=== PATIENT | female | born 1960 | race African-American/Black ===

== ENCOUNTER 2021-12-10 13:18 | Inpatient (IN) | payer OTHER ==
[2021-12-10 15:32] VITALS: BMI 24.3
[2021-12-10] MEDS ORDERED: MAGNESIUM CITRATE 300 ML BOTTLE PO PRN (17:18)
[2021-12-10] MEDS ORDERED: hydrOXYzine PAMOATE 25 MG CAPSULE (FP) PO PRN (17:18)
[2021-12-10] MEDS ORDERED: MAGNESIUM HYDROX 2400MG/30ML ORAL SUSPENSION 30 ML CUP PO PRN (17:18)
[2021-12-10] MEDS ORDERED: LOPERAMIDE HCL 2 MG CAPSULE PO PRN (17:18)
[2021-12-10] MEDS ORDERED: MAG HYDROX/AL HYDROX/SIMETH 30 ML UNIT-DOSE CUP PO PRN (17:18)
[2021-12-10] MEDS: THIAMINE HCL 100 MG TABLET (FP) PO SCH (21:50)
[2021-12-10] MEDS: INSULIN (LEVEMIR) 100 UNITS/ML UNITS SQ SCH (21:50)
[2021-12-10] MEDS: ATORVASTATIN CA 40 MG TABLET (FP) PO SCH (21:50)
[2021-12-10] MEDS: MELATONIN 5 MG TABLETS PO SCH (21:51)
[2021-12-10] MEDS: PREGABALIN 75 MG CAPSULE PO SCH (22:30)
[2021-12-11] MEDS: metFORMIN HCL 500 MG TABLET (FP) PO SCH ×2 (06:48→17:22)
[2021-12-11] MEDS ORDERED: INSULIN SLIDING SCALE (NOVOLOG) 1 VIAL SQ SCH ×2 (07:00→12:38)
[2021-12-11] MEDS: PREGABALIN 75 MG CAPSULE PO SCH ×4 (07:57→22:07)
[2021-12-11] MEDS ORDERED: PATIENT'S OWN MEDICATION (NON-FORMULARY) (Insulin Degludec [Tresiba Flextouch U-100] 100 U SQ SCH (10:00)
[2021-12-11] MEDS: NICOTINE 7 MG/24 HOURS TOPICAL PATCH TD SCH (10:29)
[2021-12-11] MEDS: PRENATAL VITAMINS W/ FOLIC ACID TABLET (FP) PO SCH (10:29)
[2021-12-11] MEDS: LOSARTAN POTASSIUM 25 MG TABLET PO SCH (10:30)
[2021-12-11] MEDS: ASPIRIN 81 MG CHEWABLE TABLETS PO SCH (10:30)
[2021-12-11] MEDS: NIFEdipine E.R 60 MG TABLET PO SCH (10:30)
[2021-12-11] MEDS: PANTOPRAZOLE 40 MG TABLET PO SCH (10:30)
[2021-12-11 11:13] LABS: HEMATOCRIT 35.9 % (32.4-45.2); HEMOGLOBIN 11.6 GM/dL (10.7-15.3); MCH 26.9 pg (25.7-33.7); MCHC 32.2 g/dl (32.0-36.0); MEAN CELL VOLUME 83.3 fl (80-96); MEAN PLT VOLUME 8.6 fl (7.5-11.1); PLATELET COUNT 301 10^3/uL (134-434); RBC 4.31 M/mm3 (3.60-5.2); RDW 15.5 % (11.6-15.6)
[2021-12-11 11:15] LABS: ALBUMIN 3.8 g/dl (3.4-5.0); BLOOD UREA NITROGEN 18.6 mg/dL (7-18); CALCIUM 10.2 mg/dL (8.5-10.1)
[2021-12-11 11:18] LABS: CREATININE 1.1 mg/dL (0.55-1.3)
[2021-12-11 11:20] LABS: BILIRUBIN,TOTAL 0.4 mg/dL (0.2-1); TOT PROT 6.6 g/dl (6.4-8.2)
[2021-12-11 11:48] LABS: SYPHILIS W/ RPR CONF NON-REACTIVE (NONREACTIVE)
[2021-12-11] MEDS ORDERED: INSULIN (NOVOLOG) ASPART 100 UNITS/ML 10ML VIAL ONE ×2 (12:44→17:21)
[2021-12-11] MEDS: INSULIN SLIDING SCALE (NOVOLOG) 1 VIAL SQ SCH ×2 (12:47→17:22)
[2021-12-11] MEDS: MELATONIN 5 MG TABLETS PO SCH (22:07)
[2021-12-11] MEDS: INSULIN (LEVEMIR) 100 UNITS/ML UNITS SQ SCH (22:07)
[2021-12-11] MEDS: ATORVASTATIN CA 40 MG TABLET (FP) PO SCH (22:07)
[2021-12-11] MEDS: THIAMINE HCL 100 MG TABLET (FP) PO SCH (22:07)
[2021-12-12] MEDS: PREGABALIN 75 MG CAPSULE PO SCH ×3 (06:28→22:13)
[2021-12-12] MEDS: INSULIN SLIDING SCALE (NOVOLOG) 1 VIAL SQ SCH ×3 (06:42→16:53)
[2021-12-12] MEDS: metFORMIN HCL 500 MG TABLET (FP) PO SCH ×2 (06:42→16:53)
[2021-12-12] MEDS: LOSARTAN POTASSIUM 25 MG TABLET PO SCH (10:27)
[2021-12-12] MEDS: PANTOPRAZOLE 40 MG TABLET PO SCH (10:27)
[2021-12-12] MEDS: NIFEdipine E.R 60 MG TABLET PO SCH (10:27)
[2021-12-12] MEDS: ASPIRIN 81 MG CHEWABLE TABLETS PO SCH (10:27)
[2021-12-12] MEDS: NICOTINE 7 MG/24 HOURS TOPICAL PATCH TD SCH (10:28)
[2021-12-12] MEDS: PRENATAL VITAMINS W/ FOLIC ACID TABLET (FP) PO SCH (10:28)
[2021-12-12] MEDS ORDERED: INSULIN (NOVOLOG) ASPART 100 UNITS/ML 10ML VIAL ONE (11:12)
[2021-12-12] MEDS: THIAMINE HCL 100 MG TABLET (FP) PO SCH (22:12)
[2021-12-12] MEDS: MELATONIN 5 MG TABLETS PO SCH (22:13)
[2021-12-12] MEDS: ATORVASTATIN CA 40 MG TABLET (FP) PO SCH (22:13)
[2021-12-12] MEDS: INSULIN (LEVEMIR) 100 UNITS/ML UNITS SQ SCH (22:54)
[2021-12-13] MEDS: PREGABALIN 75 MG CAPSULE PO SCH ×3 (06:29→21:33)
[2021-12-13] MEDS: metFORMIN HCL 500 MG TABLET (FP) PO SCH ×2 (06:29→17:10)
[2021-12-13] MEDS: INSULIN SLIDING SCALE (NOVOLOG) 1 VIAL SQ SCH ×3 (07:05→17:10)
[2021-12-13] MEDS: PRENATAL VITAMINS W/ FOLIC ACID TABLET (FP) PO SCH (10:30)
[2021-12-13] MEDS: LOSARTAN POTASSIUM 25 MG TABLET PO SCH (10:34)
[2021-12-13] MEDS: PANTOPRAZOLE 40 MG TABLET PO SCH (10:34)
[2021-12-13] MEDS: NICOTINE 7 MG/24 HOURS TOPICAL PATCH TD SCH (10:34)
[2021-12-13] MEDS: NIFEdipine E.R 60 MG TABLET PO SCH (10:34)
[2021-12-13] MEDS: ASPIRIN 81 MG CHEWABLE TABLETS PO SCH (10:34)
[2021-12-13] MEDS: NICOTINE 10 MG CARTRIDGE (INHALER) IH PRN ×3 (10:35→22:05)
[2021-12-13] MEDS ORDERED: INSULIN (NOVOLOG) ASPART 100 UNITS/ML 10ML VIAL ONE (12:24)
[2021-12-13 15:47] LABS: EPI CELLS 11 /uL (0-25.1); HYALINE CASTS 0 /uL (0-3.1); PH,URINE 6.5 (5.0-8.0); URINE APPEARANCE CLEAR; URINE BACTERIA 469 /uL (0-1359); URINE BILIRUBIN NEGATIVE (NEGATIVE); URINE COLOR YELLOW; URINE GLUCOSE (UA) 1+ (NEGATIVE); URINE KETONE NEGATIVE (NEGATIVE); URINE LEUK ESTERASE TRACE (NEGATIVE); URINE NITRITE NEGATIVE (NEGATIVE); URINE PROTEIN NEGATIVE (NEGATIVE); URINE RBC 1 /uL (0-23.9); URINE UROBILINOGEN 0.2 mg/dL (0.2-1.0); URINE WBC 15 /uL (0-25.8)
[2021-12-13] MEDS: THIAMINE HCL 100 MG TABLET (FP) PO SCH (21:33)
[2021-12-13] MEDS: MELATONIN 5 MG TABLETS PO SCH (21:33)
[2021-12-13] MEDS: ATORVASTATIN CA 40 MG TABLET (FP) PO SCH (21:33)
[2021-12-13] MEDS: INSULIN (LEVEMIR) 100 UNITS/ML UNITS SQ SCH (21:34)
[2021-12-14] MEDS: PREGABALIN 75 MG CAPSULE PO SCH ×3 (06:25→21:26)
[2021-12-14] MEDS: metFORMIN HCL 500 MG TABLET (FP) PO SCH ×2 (06:25→16:45)
[2021-12-14] MEDS: INSULIN SLIDING SCALE (NOVOLOG) 1 VIAL SQ SCH ×3 (07:03→16:45)
[2021-12-14] MEDS: ASPIRIN 81 MG CHEWABLE TABLETS PO SCH (10:39)
[2021-12-14] MEDS: PRENATAL VITAMINS W/ FOLIC ACID TABLET (FP) PO SCH (10:39)
[2021-12-14] MEDS: LOSARTAN POTASSIUM 25 MG TABLET PO SCH (10:40)
[2021-12-14] MEDS: PANTOPRAZOLE 40 MG TABLET PO SCH (10:40)
[2021-12-14] MEDS: NIFEdipine E.R 60 MG TABLET PO SCH (10:41)
[2021-12-14] MEDS: NICOTINE 7 MG/24 HOURS TOPICAL PATCH TD SCH (10:42)
[2021-12-14] MEDS: NICOTINE 10 MG CARTRIDGE (INHALER) IH PRN ×2 (10:45→21:29)
[2021-12-14] MEDS ORDERED: INSULIN (NOVOLOG) ASPART 100 UNITS/ML 10ML VIAL ONE (11:56)
[2021-12-14] MEDS: MELATONIN 5 MG TABLETS PO SCH (21:26)
[2021-12-14] MEDS: ATORVASTATIN CA 40 MG TABLET (FP) PO SCH (21:26)
[2021-12-14] MEDS: THIAMINE HCL 100 MG TABLET (FP) PO SCH (21:26)
[2021-12-14] MEDS: INSULIN (LEVEMIR) 100 UNITS/ML UNITS SQ SCH (21:28)
[2021-12-15] MEDS: PREGABALIN 75 MG CAPSULE PO SCH ×3 (06:40→21:14)
[2021-12-15] MEDS: metFORMIN HCL 500 MG TABLET (FP) PO SCH ×2 (06:40→16:38)
[2021-12-15] MEDS: INSULIN SLIDING SCALE (NOVOLOG) 1 VIAL SQ SCH ×3 (06:41→16:28)
[2021-12-15] MEDS: NIFEdipine E.R 60 MG TABLET PO SCH (09:52)
[2021-12-15] MEDS: PANTOPRAZOLE 40 MG TABLET PO SCH (09:52)
[2021-12-15] MEDS: PRENATAL VITAMINS W/ FOLIC ACID TABLET (FP) PO SCH (09:52)
[2021-12-15] MEDS: NICOTINE 7 MG/24 HOURS TOPICAL PATCH TD SCH (09:53)
[2021-12-15] MEDS: ASPIRIN 81 MG CHEWABLE TABLETS PO SCH (09:53)
[2021-12-15] MEDS: LOSARTAN POTASSIUM 25 MG TABLET PO SCH (09:53)
[2021-12-15] MEDS ORDERED: INSULIN (NOVOLOG) ASPART 100 UNITS/ML 10ML VIAL ONE (12:07)
[2021-12-15] MEDS: NICOTINE 10 MG CARTRIDGE (INHALER) IH PRN (13:47)
[2021-12-15] MEDS: metoPROLOL SUCCINATE 25 MG TAB.SR.24H (FP) PO SCH (16:22)
[2021-12-15] MEDS: ATORVASTATIN CA 40 MG TABLET (FP) PO SCH (21:14)
[2021-12-15] MEDS: THIAMINE HCL 100 MG TABLET (FP) PO SCH (21:14)
[2021-12-15] MEDS: MELATONIN 5 MG TABLETS PO SCH (21:14)
[2021-12-15] MEDS: INSULIN (LEVEMIR) 100 UNITS/ML UNITS SQ SCH (21:16)
[2021-12-16] MEDS: metFORMIN HCL 500 MG TABLET (FP) PO SCH ×2 (07:00→16:39)
[2021-12-16] MEDS: PREGABALIN 75 MG CAPSULE PO SCH ×3 (07:02→21:18)
[2021-12-16] MEDS: INSULIN SLIDING SCALE (NOVOLOG) 1 VIAL SQ SCH ×3 (07:02→16:38)
[2021-12-16] MEDS: PRENATAL VITAMINS W/ FOLIC ACID TABLET (FP) PO SCH (09:57)
[2021-12-16] MEDS: ASPIRIN 81 MG CHEWABLE TABLETS PO SCH (09:58)
[2021-12-16] MEDS: PANTOPRAZOLE 40 MG TABLET PO SCH (09:58)
[2021-12-16] MEDS: metoPROLOL SUCCINATE 25 MG TAB.SR.24H (FP) PO SCH (09:58)
[2021-12-16] MEDS: NIFEdipine E.R 60 MG TABLET PO SCH (09:58)
[2021-12-16] MEDS: NICOTINE 7 MG/24 HOURS TOPICAL PATCH TD SCH (09:59)
[2021-12-16] MEDS: LOSARTAN POTASSIUM 25 MG TABLET PO SCH (12:10)
[2021-12-16] MEDS ORDERED: INSULIN (NOVOLOG) ASPART 100 UNITS/ML 10ML VIAL ONE ×2 (12:11→16:33)
[2021-12-16] MEDS: NICOTINE 10 MG CARTRIDGE (INHALER) IH PRN (12:49)
[2021-12-16] MEDS: THIAMINE HCL 100 MG TABLET (FP) PO SCH (21:18)
[2021-12-16] MEDS: ATORVASTATIN CA 40 MG TABLET (FP) PO SCH (21:18)
[2021-12-16] MEDS: INSULIN (LEVEMIR) 100 UNITS/ML UNITS SQ SCH (21:18)
[2021-12-16] MEDS: MELATONIN 5 MG TABLETS PO SCH (21:18)
[2021-12-17] MEDS: INSULIN SLIDING SCALE (NOVOLOG) 1 VIAL SQ SCH ×3 (06:23→16:54)
[2021-12-17] MEDS: PREGABALIN 75 MG CAPSULE PO SCH (06:23)
[2021-12-17] MEDS: metFORMIN HCL 500 MG TABLET (FP) PO SCH ×2 (06:23→16:54)
[2021-12-17] MEDS: NICOTINE 10 MG CARTRIDGE (INHALER) IH PRN (09:02)
[2021-12-17] MEDS: metoPROLOL SUCCINATE 25 MG TAB.SR.24H (FP) PO SCH (10:41)
[2021-12-17] MEDS: PANTOPRAZOLE 40 MG TABLET PO SCH (10:41)
[2021-12-17] MEDS: PRENATAL VITAMINS W/ FOLIC ACID TABLET (FP) PO SCH (10:41)
[2021-12-17] MEDS: NICOTINE 7 MG/24 HOURS TOPICAL PATCH TD SCH (10:41)
[2021-12-17] MEDS: LOSARTAN POTASSIUM 25 MG TABLET PO SCH (10:41)
[2021-12-17] MEDS: NIFEdipine E.R 60 MG TABLET PO SCH (10:41)
[2021-12-17] MEDS: ASPIRIN 81 MG CHEWABLE TABLETS PO SCH (10:41)
[2021-12-17] MEDS: ATORVASTATIN CA 40 MG TABLET (FP) PO SCH (21:17)
[2021-12-17] MEDS: MELATONIN 5 MG TABLETS PO SCH (21:17)
[2021-12-17] MEDS: THIAMINE HCL 100 MG TABLET (FP) PO SCH (21:17)
[2021-12-17] MEDS: INSULIN (LEVEMIR) 100 UNITS/ML UNITS SQ SCH (21:17)
[2021-12-18] MEDS: metFORMIN HCL 500 MG TABLET (FP) PO SCH ×2 (06:46→17:02)
[2021-12-18] MEDS: INSULIN SLIDING SCALE (NOVOLOG) 1 VIAL SQ SCH ×3 (07:40→17:02)
[2021-12-18] MEDS: PRENATAL VITAMINS W/ FOLIC ACID TABLET (FP) PO SCH (10:38)
[2021-12-18] MEDS: LOSARTAN POTASSIUM 25 MG TABLET PO SCH (10:39)
[2021-12-18] MEDS: NIFEdipine E.R 60 MG TABLET PO SCH (10:39)
[2021-12-18] MEDS: metoPROLOL SUCCINATE 25 MG TAB.SR.24H (FP) PO SCH (10:39)
[2021-12-18] MEDS: ASPIRIN 81 MG CHEWABLE TABLETS PO SCH (10:39)
[2021-12-18] MEDS: PANTOPRAZOLE 40 MG TABLET PO SCH (10:39)
[2021-12-18] MEDS: NICOTINE 7 MG/24 HOURS TOPICAL PATCH TD SCH (10:42)
[2021-12-18] MEDS ORDERED: metoPROLOL SUCCINATE 25 MG TAB.SR.24H (FP) PO SCH ×2 (11:29→11:30)
[2021-12-18] MEDS ORDERED: INSULIN (NOVOLOG) ASPART 100 UNITS/ML 10ML VIAL ONE (12:05)
[2021-12-18] MEDS: ACETAMINOPHEN 325 MG TABLET (FP) PO PRN (19:59)
[2021-12-18] MEDS: MELATONIN 5 MG TABLETS PO SCH (22:12)
[2021-12-18] MEDS: ATORVASTATIN CA 40 MG TABLET (FP) PO SCH (22:12)
[2021-12-18] MEDS: INSULIN (LEVEMIR) 100 UNITS/ML UNITS SQ SCH (22:13)
[2021-12-18] MEDS: THIAMINE HCL 100 MG TABLET (FP) PO SCH (22:13)
[2021-12-19] MEDS: metoPROLOL SUCCINATE 25 MG TAB.SR.24H (FP) PO SCH ×2 (07:00→10:45)
[2021-12-19] MEDS: metFORMIN HCL 500 MG TABLET (FP) PO SCH ×2 (07:01→16:48)
[2021-12-19] MEDS ORDERED: INSULIN (NOVOLOG) ASPART 100 UNITS/ML 10ML VIAL ONE ×2 (07:02→12:02)
[2021-12-19] MEDS: INSULIN SLIDING SCALE (NOVOLOG) 1 VIAL SQ SCH ×3 (07:02→16:48)
[2021-12-19] MEDS: NICOTINE 10 MG CARTRIDGE (INHALER) IH PRN ×2 (08:43→22:06)
[2021-12-19] MEDS: PRENATAL VITAMINS W/ FOLIC ACID TABLET (FP) PO SCH (10:44)
[2021-12-19] MEDS: NIFEdipine E.R 60 MG TABLET PO SCH (10:45)
[2021-12-19] MEDS: LOSARTAN POTASSIUM 25 MG TABLET PO SCH (10:45)
[2021-12-19] MEDS: NICOTINE 7 MG/24 HOURS TOPICAL PATCH TD SCH (10:45)
[2021-12-19] MEDS: PANTOPRAZOLE 40 MG TABLET PO SCH (10:45)
[2021-12-19] MEDS: ASPIRIN 81 MG CHEWABLE TABLETS PO SCH (10:45)
[2021-12-19] MEDS: PREGABALIN 75 MG CAPSULE PO SCH ×2 (14:36→22:06)
[2021-12-19] MEDS: MELATONIN 5 MG TABLETS PO SCH (22:05)
[2021-12-19] MEDS: INSULIN (LEVEMIR) 100 UNITS/ML UNITS SQ SCH (22:06)
[2021-12-19] MEDS: ATORVASTATIN CA 40 MG TABLET (FP) PO SCH (22:06)
[2021-12-19] MEDS: THIAMINE HCL 100 MG TABLET (FP) PO SCH (22:06)
[2021-12-20] MEDS: INSULIN SLIDING SCALE (NOVOLOG) 1 VIAL SQ SCH ×3 (07:04→17:00)
[2021-12-20] MEDS: metFORMIN HCL 500 MG TABLET (FP) PO SCH ×2 (07:06→16:59)
[2021-12-20] MEDS: PREGABALIN 75 MG CAPSULE PO SCH ×3 (07:07→21:16)
[2021-12-20] MEDS: NIFEdipine E.R 60 MG TABLET PO SCH (10:43)
[2021-12-20] MEDS: NICOTINE 7 MG/24 HOURS TOPICAL PATCH TD SCH (10:43)
[2021-12-20] MEDS: ASPIRIN 81 MG CHEWABLE TABLETS PO SCH (10:43)
[2021-12-20] MEDS: PRENATAL VITAMINS W/ FOLIC ACID TABLET (FP) PO SCH (10:43)
[2021-12-20] MEDS: PANTOPRAZOLE 40 MG TABLET PO SCH (10:43)
[2021-12-20] MEDS: metoPROLOL SUCCINATE 25 MG TAB.SR.24H (FP) PO SCH (10:45)
[2021-12-20] MEDS ORDERED: INSULIN (NOVOLOG) ASPART 100 UNITS/ML 10ML VIAL ONE (11:22)
[2021-12-20] MEDS: LOSARTAN POTASSIUM 25 MG TABLET PO SCH (12:02)
[2021-12-20] MEDS: INSULIN (LEVEMIR) 100 UNITS/ML UNITS SQ SCH (21:14)
[2021-12-20] MEDS: MELATONIN 5 MG TABLETS PO SCH (21:15)
[2021-12-20] MEDS: THIAMINE HCL 100 MG TABLET (FP) PO SCH (21:16)
[2021-12-20] MEDS: ATORVASTATIN CA 40 MG TABLET (FP) PO SCH (21:16)
[2021-12-20] MEDS: NICOTINE 10 MG CARTRIDGE (INHALER) IH PRN (22:08)
[2021-12-21] MEDS: PREGABALIN 75 MG CAPSULE PO SCH ×3 (06:46→21:20)
[2021-12-21] MEDS: metFORMIN HCL 500 MG TABLET (FP) PO SCH ×2 (06:46→16:46)
[2021-12-21] MEDS ORDERED: INSULIN (NOVOLOG) ASPART 100 UNITS/ML 10ML VIAL ONE ×2 (06:48→10:59)
[2021-12-21] MEDS: INSULIN SLIDING SCALE (NOVOLOG) 1 VIAL SQ SCH ×3 (06:49→16:46)
[2021-12-21] MEDS: LOSARTAN POTASSIUM 25 MG TABLET PO SCH (10:50)
[2021-12-21] MEDS: metoPROLOL SUCCINATE 25 MG TAB.SR.24H (FP) PO SCH (10:50)
[2021-12-21] MEDS: NIFEdipine E.R 60 MG TABLET PO SCH (10:50)
[2021-12-21] MEDS: PRENATAL VITAMINS W/ FOLIC ACID TABLET (FP) PO SCH (10:50)
[2021-12-21] MEDS: PANTOPRAZOLE 40 MG TABLET PO SCH (10:50)
[2021-12-21] MEDS: ASPIRIN 81 MG CHEWABLE TABLETS PO SCH (10:51)
[2021-12-21] MEDS: NICOTINE 7 MG/24 HOURS TOPICAL PATCH TD SCH (10:51)
[2021-12-21] MEDS: NICOTINE 10 MG CARTRIDGE (INHALER) IH PRN (10:52)
[2021-12-21] MEDS: MELATONIN 5 MG TABLETS PO SCH (21:20)
[2021-12-21] MEDS: ATORVASTATIN CA 40 MG TABLET (FP) PO SCH (21:20)
[2021-12-21] MEDS: THIAMINE HCL 100 MG TABLET (FP) PO SCH (21:20)
[2021-12-21] MEDS: INSULIN (LEVEMIR) 100 UNITS/ML UNITS SQ SCH (21:21)
[2021-12-22] MEDS: metFORMIN HCL 500 MG TABLET (FP) PO SCH ×2 (06:27→16:48)
[2021-12-22] MEDS: PREGABALIN 75 MG CAPSULE PO SCH ×3 (06:27→21:24)
[2021-12-22] MEDS: INSULIN SLIDING SCALE (NOVOLOG) 1 VIAL SQ SCH ×3 (07:15→16:48)
[2021-12-22] MEDS: PRENATAL VITAMINS W/ FOLIC ACID TABLET (FP) PO SCH (10:40)
[2021-12-22] MEDS: PANTOPRAZOLE 40 MG TABLET PO SCH (10:41)
[2021-12-22] MEDS: LOSARTAN POTASSIUM 25 MG TABLET PO SCH (10:41)
[2021-12-22] MEDS: metoPROLOL SUCCINATE 25 MG TAB.SR.24H (FP) PO SCH (10:41)
[2021-12-22] MEDS: NIFEdipine E.R 60 MG TABLET PO SCH (10:41)
[2021-12-22] MEDS: NICOTINE 7 MG/24 HOURS TOPICAL PATCH TD SCH (10:41)
[2021-12-22] MEDS: ASPIRIN 81 MG CHEWABLE TABLETS PO SCH (10:41)
[2021-12-22] MEDS ORDERED: FLUCONAZOLE 50 MG TABLET PO ONE (11:30)
[2021-12-22] MEDS ORDERED: INSULIN (NOVOLOG) ASPART 100 UNITS/ML 10ML VIAL ONE ×2 (11:52→16:28)
[2021-12-22] MEDS: NICOTINE 10 MG CARTRIDGE (INHALER) IH PRN (12:48)
[2021-12-22] MEDS: MELATONIN 5 MG TABLETS PO SCH (21:24)
[2021-12-22] MEDS: INSULIN (LEVEMIR) 100 UNITS/ML UNITS SQ SCH (21:24)
[2021-12-22] MEDS: ATORVASTATIN CA 40 MG TABLET (FP) PO SCH (21:24)
[2021-12-22] MEDS: THIAMINE HCL 100 MG TABLET (FP) PO SCH (21:24)
[2021-12-23] MEDS: metoPROLOL SUCCINATE 25 MG TAB.SR.24H (FP) PO SCH (06:04)
[2021-12-23] MEDS: metFORMIN HCL 500 MG TABLET (FP) PO SCH ×2 (06:04→16:46)
[2021-12-23] MEDS: PREGABALIN 75 MG CAPSULE PO SCH ×3 (06:04→21:44)
[2021-12-23] MEDS: INSULIN SLIDING SCALE (NOVOLOG) 1 VIAL SQ SCH ×3 (07:42→16:47)
[2021-12-23] MEDS: PANTOPRAZOLE 40 MG TABLET PO SCH (09:58)
[2021-12-23] MEDS: NIFEdipine E.R 60 MG TABLET PO SCH (09:58)
[2021-12-23] MEDS: ASPIRIN 81 MG CHEWABLE TABLETS PO SCH (09:58)
[2021-12-23] MEDS: LOSARTAN POTASSIUM 25 MG TABLET PO SCH (09:58)
[2021-12-23] MEDS: PRENATAL VITAMINS W/ FOLIC ACID TABLET (FP) PO SCH (09:58)
[2021-12-23] MEDS: NICOTINE 7 MG/24 HOURS TOPICAL PATCH TD SCH (09:59)
[2021-12-23] MEDS ORDERED: INSULIN (NOVOLOG) ASPART 100 UNITS/ML 10ML VIAL ONE (11:57)
[2021-12-23] MEDS: NICOTINE 10 MG CARTRIDGE (INHALER) IH PRN (13:44)
[2021-12-23] MEDS: MELATONIN 5 MG TABLETS PO SCH (21:43)
[2021-12-23] MEDS: THIAMINE HCL 100 MG TABLET (FP) PO SCH (21:44)
[2021-12-23] MEDS: ATORVASTATIN CA 40 MG TABLET (FP) PO SCH (21:44)
[2021-12-23] MEDS: INSULIN (LEVEMIR) 100 UNITS/ML UNITS SQ SCH (21:45)
[2021-12-24] MEDS: PREGABALIN 75 MG CAPSULE PO SCH ×3 (05:57→21:29)
[2021-12-24] MEDS: metoPROLOL SUCCINATE 25 MG TAB.SR.24H (FP) PO SCH (05:57)
[2021-12-24] MEDS: INSULIN SLIDING SCALE (NOVOLOG) 1 VIAL SQ SCH ×3 (07:25→16:30)
[2021-12-24] MEDS: metFORMIN HCL 500 MG TABLET (FP) PO SCH ×2 (07:25→16:29)
[2021-12-24] MEDS: PANTOPRAZOLE 40 MG TABLET PO SCH (10:33)
[2021-12-24] MEDS: LOSARTAN POTASSIUM 25 MG TABLET PO SCH (10:33)
[2021-12-24] MEDS: ASPIRIN 81 MG CHEWABLE TABLETS PO SCH (10:33)
[2021-12-24] MEDS: NIFEdipine E.R 60 MG TABLET PO SCH (10:33)
[2021-12-24] MEDS: PRENATAL VITAMINS W/ FOLIC ACID TABLET (FP) PO SCH (10:33)
[2021-12-24] MEDS: NICOTINE 7 MG/24 HOURS TOPICAL PATCH TD SCH (10:34)
[2021-12-24] MEDS ORDERED: INSULIN (NOVOLOG) ASPART 100 UNITS/ML 10ML VIAL ONE ×2 (11:58→12:09)
[2021-12-24] MEDS: NICOTINE 10 MG CARTRIDGE (INHALER) IH PRN (21:28)
[2021-12-24] MEDS: INSULIN (LEVEMIR) 100 UNITS/ML UNITS SQ SCH (21:29)
[2021-12-24] MEDS: MELATONIN 5 MG TABLETS PO SCH (21:29)
[2021-12-24] MEDS: ATORVASTATIN CA 40 MG TABLET (FP) PO SCH (21:29)
[2021-12-24] MEDS: THIAMINE HCL 100 MG TABLET (FP) PO SCH (21:29)
[2021-12-25] MEDS: PREGABALIN 75 MG CAPSULE PO SCH ×3 (05:58→21:09)
[2021-12-25] MEDS: metoPROLOL SUCCINATE 25 MG TAB.SR.24H (FP) PO SCH (05:58)
[2021-12-25] MEDS: metFORMIN HCL 500 MG TABLET (FP) PO SCH ×2 (06:31→16:34)
[2021-12-25] MEDS: INSULIN SLIDING SCALE (NOVOLOG) 1 VIAL SQ SCH ×4 (07:15→16:36)
[2021-12-25] MEDS ORDERED: INSULIN (NOVOLOG) ASPART 100 UNITS/ML 10ML VIAL ONE ×5 (07:18→16:33)
[2021-12-25] MEDS: LOSARTAN POTASSIUM 25 MG TABLET PO SCH (10:09)
[2021-12-25] MEDS: PANTOPRAZOLE 40 MG TABLET PO SCH (10:09)
[2021-12-25] MEDS: PRENATAL VITAMINS W/ FOLIC ACID TABLET (FP) PO SCH (10:09)
[2021-12-25] MEDS: NIFEdipine E.R 60 MG TABLET PO SCH (10:09)
[2021-12-25] MEDS: ASPIRIN 81 MG CHEWABLE TABLETS PO SCH (10:09)
[2021-12-25] MEDS: NICOTINE 7 MG/24 HOURS TOPICAL PATCH TD SCH (10:10)
[2021-12-25] MEDS: ATORVASTATIN CA 40 MG TABLET (FP) PO SCH (21:09)
[2021-12-25] MEDS: MELATONIN 5 MG TABLETS PO SCH (21:09)
[2021-12-25] MEDS: THIAMINE HCL 100 MG TABLET (FP) PO SCH (21:09)
[2021-12-25] MEDS: NICOTINE 10 MG CARTRIDGE (INHALER) IH PRN (21:09)
[2021-12-25] MEDS: INSULIN (LEVEMIR) 100 UNITS/ML UNITS SQ SCH (21:52)
[2021-12-26] MEDS: metoPROLOL SUCCINATE 25 MG TAB.SR.24H (FP) PO SCH (05:56)
[2021-12-26] MEDS: PREGABALIN 75 MG CAPSULE PO SCH ×3 (05:56→21:23)
[2021-12-26] MEDS: metFORMIN HCL 500 MG TABLET (FP) PO SCH ×2 (06:19→16:35)
[2021-12-26 07:15] VITALS: RESP 18
[2021-12-26] MEDS: INSULIN SLIDING SCALE (NOVOLOG) 1 VIAL SQ SCH ×3 (07:26→16:35)
[2021-12-26] MEDS: NIFEdipine E.R 60 MG TABLET PO SCH (09:44)
[2021-12-26] MEDS: PRENATAL VITAMINS W/ FOLIC ACID TABLET (FP) PO SCH (09:44)
[2021-12-26] MEDS: LOSARTAN POTASSIUM 25 MG TABLET PO SCH (09:44)
[2021-12-26] MEDS: ASPIRIN 81 MG CHEWABLE TABLETS PO SCH (09:44)
[2021-12-26] MEDS: PANTOPRAZOLE 40 MG TABLET PO SCH (09:44)
[2021-12-26] MEDS: NICOTINE 7 MG/24 HOURS TOPICAL PATCH TD SCH (09:45)
[2021-12-26] MEDS: NICOTINE 10 MG CARTRIDGE (INHALER) IH PRN ×2 (09:45→21:23)
[2021-12-26] MEDS ORDERED: INSULIN (NOVOLOG) ASPART 100 UNITS/ML 10ML VIAL ONE ×2 (11:04→16:29)
[2021-12-26] MEDS: MELATONIN 5 MG TABLETS PO SCH (21:23)
[2021-12-26] MEDS: THIAMINE HCL 100 MG TABLET (FP) PO SCH (21:23)
[2021-12-26] MEDS: ATORVASTATIN CA 40 MG TABLET (FP) PO SCH (21:23)
[2021-12-26] MEDS: INSULIN (LEVEMIR) 100 UNITS/ML UNITS SQ SCH (21:23)
[2021-12-27] MEDS ORDERED: INSULIN (NOVOLOG) ASPART 100 UNITS/ML 10ML VIAL ONE ×2 (04:27→12:03)
[2021-12-27] MEDS: INSULIN SLIDING SCALE (NOVOLOG) 1 VIAL SQ SCH ×3 (06:26→16:37)
[2021-12-27] MEDS: PREGABALIN 75 MG CAPSULE PO SCH ×3 (06:29→21:29)
[2021-12-27] MEDS: metoPROLOL SUCCINATE 25 MG TAB.SR.24H (FP) PO SCH (06:29)
[2021-12-27] MEDS: metFORMIN HCL 500 MG TABLET (FP) PO SCH ×2 (06:29→16:36)
[2021-12-27] MEDS: PRENATAL VITAMINS W/ FOLIC ACID TABLET (FP) PO SCH (10:05)
[2021-12-27] MEDS: ASPIRIN 81 MG CHEWABLE TABLETS PO SCH (10:05)
[2021-12-27] MEDS: PANTOPRAZOLE 40 MG TABLET PO SCH (10:05)
[2021-12-27] MEDS: NIFEdipine E.R 60 MG TABLET PO SCH (10:06)
[2021-12-27] MEDS: LOSARTAN POTASSIUM 25 MG TABLET PO SCH (10:06)
[2021-12-27] MEDS: NICOTINE 7 MG/24 HOURS TOPICAL PATCH TD SCH (10:06)
[2021-12-27] MEDS: IBUPROFEN 400 MG TABLET (FP) PO PRN (19:21)
[2021-12-27] MEDS: THIAMINE HCL 100 MG TABLET (FP) PO SCH (21:29)
[2021-12-27] MEDS: INSULIN (LEVEMIR) 100 UNITS/ML UNITS SQ SCH (21:29)
[2021-12-27] MEDS: ATORVASTATIN CA 40 MG TABLET (FP) PO SCH (21:29)
[2021-12-27] MEDS: MELATONIN 5 MG TABLETS PO SCH (21:30)
[2021-12-28] MEDS: PREGABALIN 75 MG CAPSULE PO SCH ×3 (06:34→21:07)
[2021-12-28] MEDS: metFORMIN HCL 500 MG TABLET (FP) PO SCH ×2 (06:34→16:41)
[2021-12-28] MEDS: metoPROLOL SUCCINATE 25 MG TAB.SR.24H (FP) PO SCH (06:34)
[2021-12-28] MEDS: INSULIN SLIDING SCALE (NOVOLOG) 1 VIAL SQ SCH ×3 (06:35→16:41)
[2021-12-28] MEDS: PRENATAL VITAMINS W/ FOLIC ACID TABLET (FP) PO SCH (10:11)
[2021-12-28] MEDS: ASPIRIN 81 MG CHEWABLE TABLETS PO SCH (10:12)
[2021-12-28] MEDS: PANTOPRAZOLE 40 MG TABLET PO SCH (10:12)
[2021-12-28] MEDS: LOSARTAN POTASSIUM 25 MG TABLET PO SCH (10:12)
[2021-12-28] MEDS: NIFEdipine E.R 60 MG TABLET PO SCH (10:12)
[2021-12-28] MEDS: NICOTINE 7 MG/24 HOURS TOPICAL PATCH TD SCH (10:13)
[2021-12-28] MEDS ORDERED: INSULIN (NOVOLOG) ASPART 100 UNITS/ML 10ML VIAL ONE (11:50)
[2021-12-28] MEDS: NICOTINE 10 MG CARTRIDGE (INHALER) IH PRN (15:03)
[2021-12-28] MEDS: THIAMINE HCL 100 MG TABLET (FP) PO SCH (21:07)
[2021-12-28] MEDS: ATORVASTATIN CA 40 MG TABLET (FP) PO SCH (21:07)
[2021-12-28] MEDS: MELATONIN 5 MG TABLETS PO SCH (21:07)
[2021-12-28] MEDS: INSULIN (LEVEMIR) 100 UNITS/ML UNITS SQ SCH (21:08)
[2021-12-29] MEDS: metFORMIN HCL 500 MG TABLET (FP) PO SCH ×2 (06:43→16:41)
[2021-12-29] MEDS: metoPROLOL SUCCINATE 25 MG TAB.SR.24H (FP) PO SCH (06:43)
[2021-12-29] MEDS: PREGABALIN 75 MG CAPSULE PO SCH ×3 (06:43→21:22)
[2021-12-29] MEDS: INSULIN SLIDING SCALE (NOVOLOG) 1 VIAL SQ SCH ×3 (07:27→16:42)
[2021-12-29] MEDS ORDERED: INSULIN (NOVOLOG) ASPART 100 UNITS/ML 10ML VIAL ONE ×3 (07:32→16:26)
[2021-12-29] MEDS: PANTOPRAZOLE 40 MG TABLET PO SCH (09:48)
[2021-12-29] MEDS: LOSARTAN POTASSIUM 25 MG TABLET PO SCH (09:48)
[2021-12-29] MEDS: ASPIRIN 81 MG CHEWABLE TABLETS PO SCH (09:48)
[2021-12-29] MEDS: NIFEdipine E.R 60 MG TABLET PO SCH (09:48)
[2021-12-29] MEDS: PRENATAL VITAMINS W/ FOLIC ACID TABLET (FP) PO SCH (09:48)
[2021-12-29] MEDS: NICOTINE 7 MG/24 HOURS TOPICAL PATCH TD SCH (09:48)
[2021-12-29] MEDS: NICOTINE 10 MG CARTRIDGE (INHALER) IH PRN (20:31)
[2021-12-29] MEDS: INSULIN (LEVEMIR) 100 UNITS/ML UNITS SQ SCH (21:21)
[2021-12-29] MEDS: ATORVASTATIN CA 40 MG TABLET (FP) PO SCH (21:22)
[2021-12-29] MEDS: MELATONIN 5 MG TABLETS PO SCH (21:23)
[2021-12-29] MEDS: THIAMINE HCL 100 MG TABLET (FP) PO SCH (21:23)
[2021-12-30] MEDS: metFORMIN HCL 500 MG TABLET (FP) PO SCH ×2 (06:14→16:34)
[2021-12-30] MEDS: metoPROLOL SUCCINATE 25 MG TAB.SR.24H (FP) PO SCH (06:14)
[2021-12-30] MEDS: PREGABALIN 75 MG CAPSULE PO SCH ×3 (06:14→21:49)
[2021-12-30] MEDS: INSULIN SLIDING SCALE (NOVOLOG) 1 VIAL SQ SCH ×3 (07:25→16:35)
[2021-12-30] MEDS: NICOTINE 7 MG/24 HOURS TOPICAL PATCH TD SCH (10:19)
[2021-12-30] MEDS: NIFEdipine E.R 60 MG TABLET PO SCH (10:20)
[2021-12-30] MEDS: PANTOPRAZOLE 40 MG TABLET PO SCH (10:20)
[2021-12-30] MEDS: ASPIRIN 81 MG CHEWABLE TABLETS PO SCH (10:20)
[2021-12-30] MEDS: LOSARTAN POTASSIUM 25 MG TABLET PO SCH (10:20)
[2021-12-30] MEDS: PRENATAL VITAMINS W/ FOLIC ACID TABLET (FP) PO SCH (10:21)
[2021-12-30] MEDS: IBUPROFEN 400 MG TABLET (FP) PO PRN (11:02)
[2021-12-30] MEDS ORDERED: INSULIN (NOVOLOG) ASPART 100 UNITS/ML 10ML VIAL ONE ×2 (11:56→16:33)
[2021-12-30] MEDS: INSULIN (LEVEMIR) 100 UNITS/ML UNITS SQ SCH (21:47)
[2021-12-30] MEDS: THIAMINE HCL 100 MG TABLET (FP) PO SCH (21:48)
[2021-12-30] MEDS: MELATONIN 5 MG TABLETS PO SCH (21:49)
[2021-12-30] MEDS: ATORVASTATIN CA 40 MG TABLET (FP) PO SCH (21:49)
[2021-12-31] MEDS: PREGABALIN 75 MG CAPSULE PO SCH ×3 (06:02→21:01)
[2021-12-31] MEDS: metoPROLOL SUCCINATE 25 MG TAB.SR.24H (FP) PO SCH (06:02)
[2021-12-31] MEDS: INSULIN SLIDING SCALE (NOVOLOG) 1 VIAL SQ SCH ×3 (07:23→16:22)
[2021-12-31] MEDS ORDERED: INSULIN (NOVOLOG) ASPART 100 UNITS/ML 10ML VIAL ONE ×2 (07:25→11:54)
[2021-12-31] MEDS: metFORMIN HCL 500 MG TABLET (FP) PO SCH ×2 (07:25→16:22)
[2021-12-31] MEDS: IBUPROFEN 400 MG TABLET (FP) PO PRN (10:13)
[2021-12-31] MEDS: guaiFENesin 200 MG/10 ML 10 ML UNIT-DOSE CUPS PO PRN (10:13)
[2021-12-31] MEDS: LOSARTAN POTASSIUM 25 MG TABLET PO SCH (10:14)
[2021-12-31] MEDS: PANTOPRAZOLE 40 MG TABLET PO SCH (10:14)
[2021-12-31] MEDS: NIFEdipine E.R 60 MG TABLET PO SCH (10:14)
[2021-12-31] MEDS: ASPIRIN 81 MG CHEWABLE TABLETS PO SCH (10:14)
[2021-12-31] MEDS: NICOTINE 7 MG/24 HOURS TOPICAL PATCH TD SCH (10:15)
[2021-12-31] MEDS: PRENATAL VITAMINS W/ FOLIC ACID TABLET (FP) PO SCH (10:15)
[2021-12-31] MEDS: MELATONIN 5 MG TABLETS PO SCH (21:00)
[2021-12-31] MEDS: ATORVASTATIN CA 40 MG TABLET (FP) PO SCH (21:01)
[2021-12-31] MEDS: THIAMINE HCL 100 MG TABLET (FP) PO SCH (21:01)
[2021-12-31] MEDS: ACETAMINOPHEN 325 MG TABLET (FP) PO PRN (21:02)
[2021-12-31] MEDS: INSULIN (LEVEMIR) 100 UNITS/ML UNITS SQ SCH (21:05)
[2022-01-01] MEDS ORDERED: INSULIN (NOVOLOG) ASPART 100 UNITS/ML 10ML VIAL ONE ×3 (06:21→16:21)
[2022-01-01] MEDS: BENZOCAINE/MENTHOL 1 EACH LOZENGE MM PRN ×2 (06:24→18:53)
[2022-01-01] MEDS: metoPROLOL SUCCINATE 25 MG TAB.SR.24H (FP) PO SCH (06:25)
[2022-01-01] MEDS: PREGABALIN 75 MG CAPSULE PO SCH ×3 (06:25→21:46)
[2022-01-01] MEDS: guaiFENesin 200 MG/10 ML 10 ML UNIT-DOSE CUPS PO PRN ×2 (06:25→18:53)
[2022-01-01] MEDS: metFORMIN HCL 500 MG TABLET (FP) PO SCH ×2 (06:25→16:31)
[2022-01-01] MEDS: INSULIN SLIDING SCALE (NOVOLOG) 1 VIAL SQ SCH ×3 (07:41→16:31)
[2022-01-01] MEDS: PANTOPRAZOLE 40 MG TABLET PO SCH (09:38)
[2022-01-01] MEDS: NICOTINE 7 MG/24 HOURS TOPICAL PATCH TD SCH (09:38)
[2022-01-01] MEDS: LOSARTAN POTASSIUM 25 MG TABLET PO SCH (09:38)
[2022-01-01] MEDS: ASPIRIN 81 MG CHEWABLE TABLETS PO SCH (09:38)
[2022-01-01] MEDS: NIFEdipine E.R 60 MG TABLET PO SCH (09:38)
[2022-01-01] MEDS: PRENATAL VITAMINS W/ FOLIC ACID TABLET (FP) PO SCH (09:38)
[2022-01-01] MEDS: MELATONIN 5 MG TABLETS PO SCH (21:46)
[2022-01-01] MEDS: THIAMINE HCL 100 MG TABLET (FP) PO SCH (21:46)
[2022-01-01] MEDS: ATORVASTATIN CA 40 MG TABLET (FP) PO SCH (21:46)
[2022-01-01] MEDS: INSULIN (LEVEMIR) 100 UNITS/ML UNITS SQ SCH (21:46)
[2022-01-02] MEDS: BENZOCAINE/MENTHOL 1 EACH LOZENGE MM PRN ×3 (02:38→22:09)
[2022-01-02] MEDS: guaiFENesin 200 MG/10 ML 10 ML UNIT-DOSE CUPS PO PRN ×2 (02:40→10:06)
[2022-01-02] MEDS: P-EPHED 60MG/TRIPROLIDI 2.5MG TABLET PO PRN ×2 (04:20→22:09)
[2022-01-02] MEDS: metoPROLOL SUCCINATE 25 MG TAB.SR.24H (FP) PO SCH (06:10)
[2022-01-02] MEDS: PREGABALIN 75 MG CAPSULE PO SCH ×3 (06:10→21:42)
[2022-01-02] MEDS: metFORMIN HCL 500 MG TABLET (FP) PO SCH ×2 (06:10→16:38)
[2022-01-02] MEDS: INSULIN SLIDING SCALE (NOVOLOG) 1 VIAL SQ SCH ×3 (07:29→16:39)
[2022-01-02] MEDS: PANTOPRAZOLE 40 MG TABLET PO SCH (10:03)
[2022-01-02] MEDS: LOSARTAN POTASSIUM 25 MG TABLET PO SCH (10:03)
[2022-01-02] MEDS: NIFEdipine E.R 60 MG TABLET PO SCH (10:03)
[2022-01-02] MEDS: ASPIRIN 81 MG CHEWABLE TABLETS PO SCH (10:03)
[2022-01-02] MEDS: PRENATAL VITAMINS W/ FOLIC ACID TABLET (FP) PO SCH (10:03)
[2022-01-02] MEDS: NICOTINE 7 MG/24 HOURS TOPICAL PATCH TD SCH (10:04)
[2022-01-02] MEDS ORDERED: INSULIN (NOVOLOG) ASPART 100 UNITS/ML 10ML VIAL ONE (11:54)
[2022-01-02] MEDS: MELATONIN 5 MG TABLETS PO SCH (21:42)
[2022-01-02] MEDS: THIAMINE HCL 100 MG TABLET (FP) PO SCH (21:42)
[2022-01-02] MEDS: ATORVASTATIN CA 40 MG TABLET (FP) PO SCH (21:42)
[2022-01-02] MEDS: INSULIN (LEVEMIR) 100 UNITS/ML UNITS SQ SCH (21:45)
[2022-01-02] MEDS: ACETAMINOPHEN 325 MG TABLET (FP) PO PRN (21:45)
[2022-01-03] MEDS: metoPROLOL SUCCINATE 25 MG TAB.SR.24H (FP) PO SCH (06:09)
[2022-01-03] MEDS: PREGABALIN 75 MG CAPSULE PO SCH ×3 (06:09→21:21)
[2022-01-03] MEDS: metFORMIN HCL 500 MG TABLET (FP) PO SCH ×2 (06:09→16:37)
[2022-01-03] MEDS: INSULIN SLIDING SCALE (NOVOLOG) 1 VIAL SQ SCH ×3 (07:21→16:38)
[2022-01-03] MEDS: NICOTINE 7 MG/24 HOURS TOPICAL PATCH TD SCH (09:35)
[2022-01-03] MEDS: NIFEdipine E.R 60 MG TABLET PO SCH (09:35)
[2022-01-03] MEDS: PRENATAL VITAMINS W/ FOLIC ACID TABLET (FP) PO SCH (09:35)
[2022-01-03] MEDS: LOSARTAN POTASSIUM 25 MG TABLET PO SCH (09:35)
[2022-01-03] MEDS: PANTOPRAZOLE 40 MG TABLET PO SCH (09:35)
[2022-01-03] MEDS: ASPIRIN 81 MG CHEWABLE TABLETS PO SCH (09:35)
[2022-01-03] MEDS ORDERED: INSULIN (NOVOLOG) ASPART 100 UNITS/ML 10ML VIAL ONE ×2 (11:39→16:34)
[2022-01-03] MEDS: P-EPHED 60MG/TRIPROLIDI 2.5MG TABLET PO PRN (21:19)
[2022-01-03] MEDS: IBUPROFEN 400 MG TABLET (FP) PO PRN (21:20)
[2022-01-03] MEDS: THIAMINE HCL 100 MG TABLET (FP) PO SCH (21:21)
[2022-01-03] MEDS: ATORVASTATIN CA 40 MG TABLET (FP) PO SCH (21:21)
[2022-01-03] MEDS: MELATONIN 5 MG TABLETS PO SCH (21:22)
[2022-01-03] MEDS: INSULIN (LEVEMIR) 100 UNITS/ML UNITS SQ SCH (21:23)
[2022-01-04] MEDS: PREGABALIN 75 MG CAPSULE PO SCH ×3 (06:25→21:16)
[2022-01-04] MEDS: metoPROLOL SUCCINATE 25 MG TAB.SR.24H (FP) PO SCH (06:26)
[2022-01-04] MEDS: metFORMIN HCL 500 MG TABLET (FP) PO SCH ×2 (06:26→16:32)
[2022-01-04] MEDS: INSULIN SLIDING SCALE (NOVOLOG) 1 VIAL SQ SCH ×3 (07:52→16:34)
[2022-01-04] MEDS: NICOTINE 10 MG CARTRIDGE (INHALER) IH PRN (08:43)
[2022-01-04] MEDS: PRENATAL VITAMINS W/ FOLIC ACID TABLET (FP) PO SCH (10:13)
[2022-01-04] MEDS: PANTOPRAZOLE 40 MG TABLET PO SCH (10:13)
[2022-01-04] MEDS: ASPIRIN 81 MG CHEWABLE TABLETS PO SCH (10:13)
[2022-01-04] MEDS: NIFEdipine E.R 60 MG TABLET PO SCH (10:13)
[2022-01-04] MEDS: LOSARTAN POTASSIUM 25 MG TABLET PO SCH (10:13)
[2022-01-04] MEDS: NICOTINE 7 MG/24 HOURS TOPICAL PATCH TD SCH (10:13)
[2022-01-04] MEDS ORDERED: INSULIN (NOVOLOG) ASPART 100 UNITS/ML 10ML VIAL ONE ×2 (12:13→16:22)
[2022-01-04] MEDS: IBUPROFEN 400 MG TABLET (FP) PO PRN (21:15)
[2022-01-04] MEDS: ATORVASTATIN CA 40 MG TABLET (FP) PO SCH (21:16)
[2022-01-04] MEDS: INSULIN (LEVEMIR) 100 UNITS/ML UNITS SQ SCH (21:16)
[2022-01-04] MEDS: MELATONIN 5 MG TABLETS PO SCH (21:16)
[2022-01-04] MEDS: THIAMINE HCL 100 MG TABLET (FP) PO SCH (21:16)
[2022-01-05] MEDS: metFORMIN HCL 500 MG TABLET (FP) PO SCH (06:10)
[2022-01-05] MEDS: metoPROLOL SUCCINATE 25 MG TAB.SR.24H (FP) PO SCH (06:10)
[2022-01-05] MEDS: PREGABALIN 75 MG CAPSULE PO SCH ×3 (06:11→21:42)
[2022-01-05] MEDS: INSULIN SLIDING SCALE (NOVOLOG) 1 VIAL SQ SCH ×4 (07:22→16:50)
[2022-01-05] MEDS: NICOTINE 10 MG CARTRIDGE (INHALER) IH PRN (08:51)
[2022-01-05] MEDS: PANTOPRAZOLE 40 MG TABLET PO SCH (10:14)
[2022-01-05] MEDS: PRENATAL VITAMINS W/ FOLIC ACID TABLET (FP) PO SCH (10:14)
[2022-01-05] MEDS: NICOTINE 7 MG/24 HOURS TOPICAL PATCH TD SCH (10:14)
[2022-01-05] MEDS: ASPIRIN 81 MG CHEWABLE TABLETS PO SCH (10:14)
[2022-01-05] MEDS: LOSARTAN POTASSIUM 25 MG TABLET PO SCH (10:15)
[2022-01-05] MEDS: NIFEdipine E.R 60 MG TABLET PO SCH (10:15)
[2022-01-05] MEDS ORDERED: INSULIN (NOVOLOG) ASPART 100 UNITS/ML 10ML VIAL ONE ×3 (11:56→16:33)
[2022-01-05] MEDS ORDERED: metFORMIN HCL 500 MG TABLET (FP) PO SCH (16:30)
[2022-01-05] MEDS: INSULIN (LEVEMIR) 100 UNITS/ML UNITS SQ SCH (21:41)
[2022-01-05] MEDS: ATORVASTATIN CA 40 MG TABLET (FP) PO SCH (21:42)
[2022-01-05] MEDS: THIAMINE HCL 100 MG TABLET (FP) PO SCH (21:42)
[2022-01-05] MEDS: MELATONIN 5 MG TABLETS PO SCH (21:42)
[2022-01-05] MEDS: IBUPROFEN 400 MG TABLET (FP) PO PRN (22:33)
[2022-01-06] MEDS: metoPROLOL SUCCINATE 25 MG TAB.SR.24H (FP) PO SCH (06:01)
[2022-01-06] MEDS: PREGABALIN 75 MG CAPSULE PO SCH ×3 (06:02→21:31)
[2022-01-06] MEDS: INSULIN SLIDING SCALE (NOVOLOG) 1 VIAL SQ SCH ×3 (07:20→16:40)
[2022-01-06 08:36] VITALS: TEMP 98.9
[2022-01-06] MEDS: PRENATAL VITAMINS W/ FOLIC ACID TABLET (FP) PO SCH (10:13)
[2022-01-06] MEDS: ASPIRIN 81 MG CHEWABLE TABLETS PO SCH (10:13)
[2022-01-06] MEDS: LOSARTAN POTASSIUM 25 MG TABLET PO SCH (10:13)
[2022-01-06] MEDS: NIFEdipine E.R 60 MG TABLET PO SCH (10:13)
[2022-01-06] MEDS: PANTOPRAZOLE 40 MG TABLET PO SCH (10:13)
[2022-01-06] MEDS: NICOTINE 7 MG/24 HOURS TOPICAL PATCH TD SCH (10:14)
[2022-01-06] MEDS: IBUPROFEN 400 MG TABLET (FP) PO PRN (10:15)
[2022-01-06] MEDS ORDERED: INSULIN (NOVOLOG) ASPART 100 UNITS/ML 10ML VIAL ONE ×2 (12:11→16:34)
[2022-01-06] MEDS: NICOTINE 10 MG CARTRIDGE (INHALER) IH PRN (18:16)
[2022-01-06] MEDS: MELATONIN 5 MG TABLETS PO SCH (21:30)
[2022-01-06] MEDS: THIAMINE HCL 100 MG TABLET (FP) PO SCH (21:31)
[2022-01-06] MEDS: ATORVASTATIN CA 40 MG TABLET (FP) PO SCH (21:31)
[2022-01-06] MEDS: INSULIN (LEVEMIR) 100 UNITS/ML UNITS SQ SCH (21:31)
[2022-01-07] MEDS: PREGABALIN 75 MG CAPSULE PO SCH (06:01)
[2022-01-07] MEDS: metoPROLOL SUCCINATE 25 MG TAB.SR.24H (FP) PO SCH (06:01)
[2022-01-07] MEDS: INSULIN SLIDING SCALE (NOVOLOG) 1 VIAL SQ SCH (07:30)
[2022-01-07 08:44] VITALS: BP 136/81; PULSE 95
== END 2022-01-07 08:20 | disposition home or self-care (01) | DRG 772 ==
LOC: YASAS 13:18 → Y5N 20:09
PROVIDERS: ADMIT Allergy & Immunology; ATTEND Psychiatry & Neurology Pain Medicine
PROC: HZ42ZZZ Group Counseling for Substance Abuse Treatment, Cognitive-Behavioral (ICD-10-PCS; principal; 2021-12-10)
DX: F10.20 Alcohol dependence, uncomplicated (principal); F14.20 Cocaine dependence, uncomplicated; F17.210 Nicotine dependence, cigarettes, uncomplicated; I10 Essential (primary) hypertension; E78.00 Pure hypercholesterolemia, unspecified; E11.42 Type 2 diabetes mellitus with diabetic polyneuropathy; E11.59 Type 2 diabetes mellitus with other circulatory complications; Z79.4 Long term (current) use of insulin; R00.0 Tachycardia, unspecified; R35.0 Frequency of micturition; Z87.11 Personal history of peptic ulcer disease; Z86.79 Personal history of other diseases of the circulatory system; Z28.310 Unvaccinated for COVID-19; Z28.9 Immunization not carried out for unspecified reason
CPT/HCPCS: 36415; 80053; 81003; 82962; 83036; 85027; 86780; 86803; 87811; 93005; 93010; C9803-CS; U0003; U0005